=== PATIENT | female | born 1970 | race Caucasian/White ===

== ENCOUNTER 2019-09-26 16:20 | Emergency (ER) | payer OTHER ==
[~2019-09-26] VITALS: Ht 152.4 cm; Wt 62.0 kg
[2019-09-26] MEDS ORDERED: METH10TA2 PO (16:51)
[2019-09-26] MEDS ORDERED: VANCOMYCIN 1 G PREMIX 200 ML IV SCH (17:30)
[2019-09-26 18:01] LABS: BASOPHILS % 0.2 % (0.0-2.0); EOSINOPHILS % 2.3 % (0.0-5.0); HEMATOCRIT. 36.4 % (36.0-48.0); HEMOGLOBIN. 12.3 g/dL (12.0-16.0); LYMPHOCYTES % 30.7 % (20.0-50.0); MEAN CORPUSCULAR HEMOGLOBIN 29.7 pg (28.0-32.0); MEAN CORPUSCULAR VOLUME 87.9 fL (81.0-99.0); MEAN PLATELET VOLUME 8.1 fl (7.4-10.4); MONOCYTES % 6.4 % (2.0-8.0); NEUTROPHILS % 60.4 % (40.0-76.0); PLATELET 360 x1000/uL (130-400); RED BLOOD CELL COUNT 4.14 mill/uL (4.2-5.4); RED CELL DISTRIBUTION WIDTH 14.8 % (11.6-14.6)
[2019-09-26 18:02] LABS: CHLORIDE 103 mEq/L (98-107)
[2019-09-26] MEDS ORDERED: LIDOCAINE HCL 1% 20ML VIAL (Pyxis) INJ INFIL ONE (19:30)
[2019-09-26] MEDS ORDERED: LIDOCAINE HCL 1% 20ML VIAL (Pyxis) INJ ONE (19:34)
[2019-09-26] MEDS ORDERED: IBUPROFEN 600MG TABLET PO ONE (20:00)
[2019-09-26 20:17] VITALS: BP 132/77
== END 2019-09-26 20:20 | disposition home or self-care (01) ==
LOC: ER 16:20
DX: L02.413 Cutaneous abscess of right upper limb (principal); L03.113 Cellulitis of right upper limb; F11.10 Opioid abuse, uncomplicated
CPT/HCPCS: 10060; 36415; 73030; 73060; 80053; 85025; 96365; 96366; 99284; J3370; J3490

== ENCOUNTER 2019-10-01 20:19 | Emergency (ER) | payer OTHER ==
[~2019-10-01] VITALS: Ht 152.4 cm; Wt 59.0 kg
[~2019-10-01 20:19] MED LIST: METH10TA2 PO
[2019-10-01] MEDS ORDERED: TETANUS, DIPHTHERIA, PERTUSSIS VAC/PF 0.5ML (>7YR OLD) IM ONE (22:30)
[2019-10-01] MEDS ORDERED: IBUPROFEN 600MG TABLET PO ONE (22:30)
[2019-10-01 23:15] VITALS: BP 121/76
== END 2019-10-01 23:16 | disposition home or self-care (01) ==
LOC: ER 20:19
DX: Z48.00 Encounter for change or removal of nonsurgical wound dressing (principal); Z23 Encounter for immunization
CPT/HCPCS: 90471; 90715; 99283

== ENCOUNTER 2019-10-08 14:12 | Emergency (ER) | payer OTHER ==
[~2019-10-08] VITALS: Ht 152.4 cm; Wt 59.0 kg
[2019-10-08 14:45] VITALS: BP 123/78
== END 2019-10-08 14:58 | disposition home or self-care (01) ==
LOC: ER 14:12
DX: Z48.00 Encounter for change or removal of nonsurgical wound dressing (principal); F11.10 Opioid abuse, uncomplicated
CPT/HCPCS: 99281

== ENCOUNTER 2020-09-21 01:40 | Emergency (ER) | payer OTHER ==
[~2020-09-21] VITALS: Ht 152.4 cm; Wt 59.0 kg
[2020-09-21 02:02] VITALS: BP 131/92
[2020-09-21] MEDS ORDERED: ACETAMINOPHEN 325MG TABLET PO ONE (02:30)
[2020-09-21] MEDS ORDERED: LIDOCAINE HCL/EPINEPHRINE 1%-EPI 1:100,000 20 ML VIAL INFIL ONE (02:30)
[2020-09-21] MEDS ORDERED: BACITRACIN ZINC OINT UDPKT TOP ONE (02:30)
[2020-09-21] MEDS ORDERED: TETANUS, DIPHTHERIA, PERTUSSIS VAC/PF 0.5ML (>7YR OLD) IM ONE (02:30)
[2020-09-21] MEDS ORDERED: SULF1TAB48 MT (04:51)
[2020-09-21] MEDS ORDERED: ACET-2708 MT (04:51)
== END 2020-09-21 05:01 | disposition home or self-care (01) ==
LOC: ER 01:55
DX: L02.413 Cutaneous abscess of right upper limb (principal); L02.414 Cutaneous abscess of left upper limb; Z88.0 Allergy status to penicillin; Z79.899 Other long term (current) drug therapy
CPT/HCPCS: 81025; 99283; J3490; Z7610; 90715